=== PATIENT | male | born 1970 | race Caucasian/White ===

== ENCOUNTER 2016-06-28 03:30 | Emergency (ER) | payer MEDICARE, OTHER ==
[~2016-06-28 03:30] MED LIST: ABILIFY2 PO; ALTA2.5 PO; ASA5GR PO; BUSPAR15 M1 PO; BYSTOLIC5 MG PO; CRESTOR20 MG PO; DOXYCYCLINE; GLUCOPHAGE1000 MG PO; GLUCPH PO; HUMALOG INSULIN; HUMAPUMP SC; IBU800 PO; INSULIN; K-TABS10 MEQ PO; KLONO5 PO; L20 PO; LASIX; LIPITOR40 PO; LISINOPRIL40 MG PO; LORTAB 5 PO; NEUR400 PO; NEUR800 PO; NITROSTAT0.4 MG SL; NORV5 PO; NOVREGPUMP SC; PLAVIX PO; PRILO PO; PROAIR HFA INH; PROZ10 PO; PROZAC40 MG PO; TESTOSTERONE IM; VESICARE5 PO; VIBRA-TAB 100100 MG PO; WELLSR150 PO
[2016-06-28 03:34] LABS: BASOPHILS 0.3 %; BASOPHILS ABSOLUTE 0.03 10/3/uL (0.0-0.16); EOSINOPHILS 3.4 %; EOSINOPHILS ABSOLUTE 0.33 10/3/uL (0.0-0.53); HEMATOCRIT 40.5 % (40.0-51.0); HEMOGLOBIN 13.1 g/dL (13.6-17.8); IMMATURE GRANULOCYTES 0.2 %; IMMATURE GRANULOCYTES ABSOLUTE 0.02 10/3/uL (0.0-0.11); LYMPHOCYTES 35.6 %; LYMPHOCYTES ABSOLUTE 3.46 10/3/uL (0.67-4.30); MEAN CORPUS HGB CONC 32.3 g/dL (32.0-36.0); MEAN CORPUSCULAR HEMOGLOB 24.6 pg (26.0-34.0); MEAN PLATELET VOLUME 9.3 fL (9.2-13.0); MONOCYTES 8.2 %; NEUTROPHILS 52.3 %; NEUTROPHILS ABSOLUTE 5.07 10/3/uL (2.02-8.40); PLATELET COUNT 278 10/3/uL (150-400); RBC DISTRIBUTION WIDTH 14.1 % (12.0-16.0); RED CELL COUNT 5.33 10/6/uL (4.7-6.1); WHITE BLOOD CELLS 9.7 10/3/uL (4.5-10.5)
[2016-06-28 03:43] LABS: MANUAL DIFF NO %
[2016-06-28 03:46] LABS: BUN (BLOOD UREA NITROGEN) 15 MG/DL (6-23); CALCIUM, SERUM 8.5 MG/DL (8.5-10.4); CHLORIDE, SERUM 105 MMOL/L (96-112); CO2 (CARBON DIOXIDE) 28 MMOL/L (24-34); GFR AFRICAN AMERICAN 118 ML/MIN (>=60); GFR NON AFRICAN AMERICAN 102 ML/MIN (>=60); POTASSIUM, SERUM 3.7 MMOL/L (3.5-5.3); SODIUM, SERUM 143 MMOL/L (135-148)
[2016-06-28 03:47] LABS: GLUCOSE, SERUM 138 MG/DL (60-99)
[2016-06-28 03:49] LABS: INTERNATIONAL NORMAL RATI 1.1 UNITS (-); PARTIAL THROMBO TIME 27.6 SEC (22.5-37.2)
== END 2016-06-28 04:38 | disposition home or self-care (01) ==
LOC: ER 03:30
PROVIDERS: Emergency Medicine
DX: M79.662 Pain in left lower leg (principal); J44.9 Chronic obstructive pulmonary disease, unspecified; I10 Essential (primary) hypertension; F32.9 Major depressive disorder, single episode, unspecified; E11.40 Type 2 diabetes mellitus with diabetic neuropathy, unspecified; G62.9 Polyneuropathy, unspecified; Z86.73 Personal history of transient ischemic attack (TIA), and cerebral infarction without residual deficits; Z88.8 Allergy status to other drugs, medicaments and biological substances; Z79.4 Long term (current) use of insulin; Z79.899 Other long term (current) drug therapy
CPT/HCPCS: 80048; 85025; 85379; 85610; 85730; 99283

== ENCOUNTER 2016-12-04 18:32 | Emergency (ER) | payer MEDICARE ==
[2016-12-04 20:28] LABS: BASOPHILS 0.3 %; BASOPHILS ABSOLUTE 0.03 10/3/uL (0.0-0.16); EOSINOPHILS 2.6 %; EOSINOPHILS ABSOLUTE 0.28 10/3/uL (0.0-0.53); HEMATOCRIT 42.5 % (40.0-51.0); HEMOGLOBIN 13.6 g/dL (13.6-17.8); IMMATURE GRANULOCYTES 0.2 %; IMMATURE GRANULOCYTES ABSOLUTE 0.02 10/3/uL (0.0-0.11); LYMPHOCYTES 26.7 %; LYMPHOCYTES ABSOLUTE 2.87 10/3/uL (0.67-4.30); MEAN CORPUSCULAR HEMOGLOB 23.2 pg (26.0-34.0); MEAN CORPUSCULAR VOLUME 72.6 fL (80-100); MEAN PLATELET VOLUME 9.7 fL (9.2-13.0); MONOCYTES 5.6 %; NEUTROPHILS 64.6 %; NEUTROPHILS ABSOLUTE 6.95 10/3/uL (2.02-8.40); PLATELET COUNT 319 10/3/uL (150-400); RBC DISTRIBUTION WIDTH 15.9 % (12.0-16.0); RED CELL COUNT 5.85 10/6/uL (4.7-6.1); WHITE BLOOD CELLS 10.8 10/3/uL (4.5-10.5)
[2016-12-04 20:29] LABS: MANUAL DIFF NO %
[2016-12-04 20:35] LABS: PARTIAL THROMBO TIME 27.5 SEC (22.5-37.2); PROTIME (NOT ORD) 13.3 SEC (12.0-14.5)
[2016-12-05 00:26] LABS: BUN (BLOOD UREA NITROGEN) 13 MG/DL (6-23); CALCIUM, SERUM 9.2 MG/DL (8.5-10.4); CHEST PAIN PROFILE TAT 0 Hrs 26 Mins; CHLORIDE, SERUM 103 MMOL/L (96-112); CO2 (CARBON DIOXIDE) 28 MMOL/L (24-34); CREATININE 0.89 MG/DL (0.70-1.30); GFR AFRICAN AMERICAN 119 ML/MIN (>=60); GFR NON AFRICAN AMERICAN 103 ML/MIN (>=60); SODIUM, SERUM 140 MMOL/L (135-148); TROPONIN I <0.02 NG/ML (<0.05)
[2016-12-05 00:31] LABS: GLUCOSE, SERUM 200 MG/DL (60-99)
== END 2016-12-05 01:14 | disposition home or self-care (01) ==
LOC: ER 18:32
PROVIDERS: Emergency Medicine
DX: R07.89 Other chest pain (principal); I10 Essential (primary) hypertension; J44.9 Chronic obstructive pulmonary disease, unspecified; F32.9 Major depressive disorder, single episode, unspecified; E11.9 Type 2 diabetes mellitus without complications; Z88.8 Allergy status to other drugs, medicaments and biological substances; Z86.73 Personal history of transient ischemic attack (TIA), and cerebral infarction without residual deficits; Z79.4 Long term (current) use of insulin; Z79.899 Other long term (current) drug therapy
CPT/HCPCS: 71020; 80048; 83735; 84484; 85025; 85610; 85730; 93005; 99285; A9270-GY